=== PATIENT | female | born 1980 | race Caucasian/White ===

== ENCOUNTER 2017-07-25 21:24 | Outpatient (CLI) | payer MEDICAID ==
--- NOTE | 2017-07-16 21:46 | CONS ---
DATE OF ADMISSION: 08/10/2017 DATE OF CONSULTATION: HISTORY OF PRESENT ILLNESS: I thank you very much for this kind referral. The patient is a 71-year-old female patient, who has been referred to me for further evaluation of positive occult blood in stool. No past history of colon neoplasm. Patient never had a screening colonoscopy. Her appetite has been good and no weight loss. No upper abdominal pain, nausea, or vomiting. Not on nonsteroidal anti-inflammatory agents. No history of gallstones or liver disease. Hypertensive. She has diabetes. No heart disease, lung problem, or kidney disease. Has hyperlipidemia. Status post hysterectomy. SOCIAL HISTORY: Nonsmoker. No alcohol abuse. FAMILY HISTORY: No family history of gastrointestinal tract neoplasm. ALLERGIES: NO DRUG ALLERGIES. MEDICATIONS: She takes medicine for high blood pressure, diabetes and cholesterol, she does not remember the names. PHYSICAL EXAMINATION: VITAL SIGNS: She is 5 feet, 3 inches tall and weighs 196 pounds. BMI 35. Blood pressure 142/88, normal heart sounds. LUNGS: Clear. ABDOMEN: Soft. No masses. Normal bowel sounds. NEUROLOGIC: Normal neurological examination. IMPRESSION: 1. Positive occult blood in stool. 2. Patient never had a screening colonoscopy. 3. Hypertension. 4. Diabetes mellitus. 5. Hyperlipidemia. 6. Status post hysterectomy. 7. Obesity. PLAN: Colonoscopy for further evaluation. Because of the obesity with a short, thick neck, she needs monitored anesthesia care. The procedure and possible complications were well explained to the patient. She understands and consents to the procedure. The patient was strongly advised to lose weight. Dietary consultation was recommended. Follow up with a primary MD for the management of elevated BMI and hypertension. I thank you once again. With warmest personal regards. Dictated By: MD TONI Saha/bryant/bjc /Document#: [id number]
[~2017-07-25] VITALS: Ht 157.5 cm; Wt 61.5 kg
[~2017-07-25 21:24] MED LIST: PREN1TAB12
[2017-07-25 22:05] VITALS: Ht 157.5 cm; Wt 61.5 kg
[2017-07-25 22:49] VITALS: BP 128/73; PULSE 95; RESP 18
[2017-07-25] MEDS ORDERED: FER325 PO (22:51)
--- NOTE | 2017-07-26 01:43 | PN ---
Triage Information Date/Time Reason for visit: Uterine contractions (approx q5 min since 10/8 AM) Weeks of Gestation 37+5 /Para 3/2 Diabetes: none Hypertention: none Additional information Reports normal FM, denies LOF or VB. Of note, RN saw fluid on chux and sent ROM plus Objective Vital Signs Date Time Temp Pulse Resp B/P Pulse Ox O2 Delivery O2 Flow Rate FiO2 07/25/17 22:49 97.9 95 18 128/73 Room Air Heart Rate: 130's Heart Rate Comments mod variability, +accels, no decels Contractions: < 5 Minutes Apart Exam 3/70/-2, unchanged on repeat exam after 2hrs and then at 4hrs Nitrazine negative Results/Medications Results 24 hrs Laboratory Tests Test 07/25/17 22:35 Membranes Rupture NEGATIVE Disposition: Discharge Assessment/Plan Early labor w/reactive NST and no e/o ROM S/p prolonged monitoring without cervical change on serial SVEs Pt appropriate for d/c home Encouraged pt to call OB clinic tomorrow and schedule appt for this week ( missed last week's appt so did not have a f/up appt scheduled) Labor, ROM and FKC precautions reviewed Questions answered to patient's satisfaction ROSA M NAVAS MD Jul 26, 2017 01:42
== END 2017-07-26 03:31 | disposition home or self-care (01) ==
LOC: OBT 21:24 → L-D 21:24 → OBT 07-26 03:31
PROVIDERS: ATTEND Obstetrics & Gynecology
DX: O62.9 Abnormality of forces of labor, unspecified (principal); Z3A.37 37 weeks gestation of pregnancy
CPT/HCPCS: 84112; Z7500; G0463

== ENCOUNTER 2017-08-07 21:25 | Inpatient (IN) | payer MEDICAID ==
[~2017-08-07] VITALS: Ht 154.9 cm; Wt 62.6 kg
[~2017-08-07 21:25] MED LIST changes: +FER325 PO
[2017-08-07 21:52] VITALS: Ht 154.9 cm; Wt 62.6 kg
[2017-08-07 21:53] VITALS: BP 120/75; PULSE 71; RESP 18
[2017-08-07] MEDS ORDERED: LACTATED RINGER'S 1,000 ML IV SCH (23:47)
[2017-08-08] VITALS (8 sets, daily range): BP systolic 112–137; BP diastolic 66–77; PULSE 68–77; RESP 18–19
[2017-08-08] MEDS ORDERED: LIDOCAINE 1% (MPF) 30 ML INJ INJ PRN
[2017-08-08] MEDS ORDERED: BUTORPHANOL 2 MG INJ IV PRN
[2017-08-08] MEDS ORDERED: MISOPROSTOL 200 MCG TAB PR PRN
[2017-08-08] MEDS ORDERED: AMPICILLIN 2 GM/NS (PMX) 100 ML IV ONE
[2017-08-08] MEDS ORDERED: METHYLERGONOVINE 0.2 MG INJ IM PRN
[2017-08-08] MEDS ORDERED: OXYTOCIN 30 UNITS/LR 500 ML IV PRN
[2017-08-08] MEDS ORDERED: IBUPROFEN 600 MG TAB PO PRN
[2017-08-08] MEDS ORDERED: CARBOPROST 250 MCG INJ IM PRN
[2017-08-08] MEDS ORDERED: ONDANSETRON 4 MG INJ ONE (01:06)
[2017-08-08] MEDS ORDERED: CITRIC ACID/NA CITRATE 30 ML CUP ONE (01:06)
[2017-08-08 01:10] LABS: BASOPHIL # 0.1 10^3/ul (0.0-0.1); BASOPHILS % 0.5 % (0.0-2.0); EOSINOPHILS # 0.1 10^3/ul (0.0-0.5); EOSINOPHILS % 0.9 % (0.0-7.0); HEMATOCRIT 37.5 % (37.0-47.0); HEMOGLOBIN 12.6 g/dl (12.0-16.0); LYMPHOCYTES # 2.5 10^3/ul (0.8-2.9); LYMPHOCYTES % 22.9 % (15.0-51.0); MEAN CORPUSCULAR HEMOGLOBIN 28.7 pg (29.0-33.0); MEAN CORPUSCULAR HGB CONC 33.6 g/dl (32.0-37.0); MEAN CORPUSCULAR VOLUME 85.4 fl (82.0-101.0); MEAN PLATELET VOLUME 11.3 fl (7.4-10.4); MONOCYTE # 0.8 10^3/ul (0.3-0.9); MONOCYTES % 7.7 % (0.0-11.0); NEUTROPHIL # 7.2 10^3/ul (1.6-7.5); NEUTROPHILS % 67.1 % (39.0-77.0); PLATELET COUNT 237 10^3/UL (140-415); RED BLOOD COUNT 4.39 10^6/ul (4.20-5.40); RED CELL DISTRIBUTION WIDTH 12.7 % (11.5-14.5); WHITE BLOOD COUNT 10.7 10^3/ul (4.8-10.8)
[2017-08-08 01:27] LABS: INR 0.9; PROTIME 12.1 Sec (12.2-14.2); PT RATIO 0.9
[2017-08-08 01:28] LABS: PARTIAL THROMBOPLASTIN TIME 25.8 Sec (25.0-35.0)
[2017-08-08] MEDS ORDERED: LACTATED RINGER'S 1,000 ML IV ONE (01:31)
[2017-08-08] MEDS ORDERED: FENTAnyl 2MCG/ML-ROPIV 0.2% 100 ML ONE (01:38)
[2017-08-08] MEDS ORDERED: morphine 2 MG INJ IV PRN (02:00)
[2017-08-08] MEDS ORDERED: NALOXONE (0.4 MG/ML) INJ IV PRN (02:00)
[2017-08-08] MEDS ORDERED: TRIMETHOBENZAMIDE 100 MG/ML VIAL IM PRN (02:00)
[2017-08-08] MEDS ORDERED: CITRIC ACID/NA CITRATE 30 ML CUP PO ONE (02:00)
[2017-08-08] MEDS ORDERED: DIPHENHYDRAMINE 50 MG INJ IV PRN (02:00)
[2017-08-08] MEDS ORDERED: ONDANSETRON 4 MG INJ IV PRN ×2 (02:00→16:30)
[2017-08-08] MEDS ORDERED: KETOROLAC 30 MG INJ IV PRN (02:00)
[2017-08-08] MEDS ORDERED: NALBUPHINE HCL (10 MG/1 ML) INJ IV PRN (02:00)
[2017-08-08] MEDS ORDERED: ONDANSETRON 4 MG INJ IV ONE (02:00)
[2017-08-08] MEDS ORDERED: FENTAnyl 2MCG/ML-ROPIV 0.2% 100 ML BAG EPI SCH (02:00)
[2017-08-08] MEDS ORDERED: LACTATED RINGER'S 1,000 ML IV PRN (04:00)
[2017-08-08] MEDS: AMPICILLIN 1 GM/NS (PMX) 50 ML IV SCH ×2 (04:09→08:21)
[2017-08-08] MEDS ORDERED: OXYTOCIN 30 UNITS/LR 500 ML IV SCH ×3 (09:30)
--- NOTE | 2017-08-08 12:46 | LDN ---
Date/Time of Note Date/Time of Note DATE: 08/08/17 TIME: 12:36 Delivery Summary Normal spontaneous vaginal delivery of a live baby boy from OA position , shoulders delivered without difficulty ,rest of the baby's body followed baby had cord around the neck 1 placenta spontaneous expulsion inspected complete, blood loss 200 cc patient ,sustained small first-degree perineal laceration repaired with 3-0 chromic catgut Weeks of Gestation 39 weeks 5 days Placenta Delivered: Spontaneously Meconium: none Episiotomy: No Laceration repair: First-degree perineal laceration repaired with 3-0 chromic catgut Anesthesia type: Epidural Estimated blood loss: 200 Sponge & Needle done & correct: Yes All needle counts correct: Yes Any foreign bodies felt in the: No Problems: Infant Delivery Information Sex Infant Sex: male Apgars 1 Minute: 8 5 Minute: 9 Suctioning Nose & mouth suctioned at taylor: Yes Umbilical Cord Umbilical cord with: 3 Vessels Cord presentations: nuchal cord Nuchal cord present X: 1 Cord Blood was obtained: Yes MEGGAN HDEZ MD Aug 08, 2017 12:46
--- NOTE | 2017-08-08 12:54 | HP ---
Date/Time of Note Date/Time of Note DATE: 08/08/17 TIME: 12:46 OB - History Hx of Present Free Text/Dictation 36 years old female EDC August 10, 2017 admitted to [facility] in labor pelvic examination on admission cervix 3-4 cm dilated 70% effaced vertex at -2 station contraction every 5-10 minutes Chief Complaint: Labor contraction : 24 Para: 3 Spontaneous : 2 Care: Good Care Ultrasounds: Normal mid trimester US Obstetrical Complications: None Medical Complications: None Past Family/Social History * Past Medical, Surgical, Family and Obstetric Histories reviewed from chart. Rubella: immune RPR/VDRL: Negative GBS Status: Negative HBsAG: Negative OB Admission Exam Vital Signs Vital Signs Vital Signs Date Time Temp Pulse Resp B/P Pulse Ox O2 Delivery O2 Flow Rate FiO2 08/07/17 21:53 98.2 71 18 120/75 Room Air Physical Exam HEENT: WNL Heart: Rhythm Normal Abdomen: WNL Extremities: Normal Reflexes: Normal Cervical Dilatation: 4cm Effacement: 75% Station: -2 Membranes: Intact Heart Rate: 130's Decelerations: No Decelerations Varibility: Moderate Intensity: Moderate Last 72 hours Lab Results CBC & BMP 08/08/17 00:44 OB Assessment/Plan Reason for admission: active labor, other Other plan: 36 years old female EDC August 10, 2070 admitted to the hospital at 39 weeks and 5 days in labor pelvic exam on admission cervix 4 cm dilated 75-80% effaced vertex at -1 -2 station heart category 1 patient transferred from triage unit to L&D anticipating normal vaginal delivery. MEGGAN DHEZ MD Aug 08, 2017 12:54
[2017-08-08 14:30] LABS: BASOPHILS % 0.2 % (0.0-2.0); EOSINOPHILS # 0.1 10^3/ul (0.0-0.5); EOSINOPHILS % 0.3 % (0.0-7.0); HEMATOCRIT 35.8 % (37.0-47.0); LYMPHOCYTES # 1.5 10^3/ul (0.8-2.9); LYMPHOCYTES % 9.1 % (15.0-51.0); MEAN CORPUSCULAR HEMOGLOBIN 28.8 pg (29.0-33.0); MEAN CORPUSCULAR HGB CONC 33.5 g/dl (32.0-37.0); MEAN CORPUSCULAR VOLUME 86.1 fl (82.0-101.0); MONOCYTE # 0.7 10^3/ul (0.3-0.9); MONOCYTES % 4.1 % (0.0-11.0); NEUTROPHIL # 14.5 10^3/ul (1.6-7.5); NEUTROPHILS % 85.7 % (39.0-77.0); PLATELET COUNT 197 10^3/UL (140-415); RED BLOOD COUNT 4.16 10^6/ul (4.20-5.40)
[2017-08-08 14:52] LABS: ALBUMIN 2.8 g/dl (3.3-4.9); ALBUMIN/GLOBULIN RATIO 0.93; BILIRUBIN,INDIRECT 0.9 mg/dl (0-1.1); BILIRUBIN,TOTAL 0.9 mg/dl (0.2-1.3); CALCIUM 8.7 mg/dl (8.4-10.2); CREATININE 0.68 mg/dl (0.44-1.00); TOTAL PROTEIN 5.8 g/dl (6.1-8.1); URIC ACID 6.7 mg/dl (3.1-7.9)
[2017-08-08 15:10] LABS: UR COLOR RED (YELLOW)
[2017-08-08 15:11] LABS: UR CLARITY CLOUDY (CLEAR); UR KETONES (Dip) 2+ mg/dL (NEGATIVE); UR TOTAL PROTEIN (Dip) 4+ mg/dl (NEGATIVE)
[2017-08-08 15:12] LABS: ADD UMIC YES; UR BILIRUBIN (Dip) NEGATIVE (NEGATIVE); UR BLOOD (Dip) 3+ mg/dL (NEGATIVE); UR LEUKOCYTE ESTERASE (Dip) 2+ Leu/ul (NEGATIVE); UR NITRITE (Dip) POSITIVE (NEGATIVE); UR UROBILINOGEN (Dip) >8.0 E.U./dL mg/dL (NEGATIVE)
[2017-08-08 15:24] LABS: INR 0.98; PARTIAL THROMBOPLASTIN TIME 26.9 Sec (25.0-35.0)
[2017-08-08] MEDS ORDERED: MAGNESIUM SULFATE 20 GM/500 ML 500 ML IV SCH (15:30)
[2017-08-08] MEDS ORDERED: ACETAMINOPHEN 325 MG TAB PO PRN (16:30)
[2017-08-08] MEDS ORDERED: DIBUCAINE 1% 30 GM OINT PR PRN (16:30)
[2017-08-08] MEDS ORDERED: OXYCODONE/ASPIRIN (4.88/325) TAB PO PRN ×2 (16:30)
[2017-08-08] MEDS ORDERED: WITCH HAZEL/GLYCERIN PAD PR PRN (16:30)
[2017-08-08] MEDS ORDERED: LANOLIN 7 GM TUBE TOP PRN (16:30)
[2017-08-08] MEDS ORDERED: HYDROCODONE/APAP (5/325) TAB PO PRN ×2 (16:30)
[2017-08-08] MEDS ORDERED: BENZOCAINE 20% 56 ML SPRAY TOP PRN (16:30)
[2017-08-08] MEDS: OXYTOCIN 30 UNITS/LR 500 ML IV SCH ×2 (17:05→22:25)
[2017-08-08] MEDS: IBUPROFEN 600 MG TAB PO SCH (17:56)
[2017-08-08] MEDS: SENNA/DOCUSATE NA (8.6MG/50MG) TAB PO SCH (21:32)
[2017-08-09] VITALS (9 sets, daily range): BP systolic 103–137; BP diastolic 60–83; PULSE 65–85; RESP 16–19
[2017-08-09] MEDS: IBUPROFEN 600 MG TAB PO SCH ×5 (00:15→23:36)
[2017-08-09] MEDS: SENNA/DOCUSATE NA (8.6MG/50MG) TAB PO SCH ×2 (09:19→20:28)
--- NOTE | 2017-08-09 10:04 | QN ---
Documentation Comment Post normal vaginal delivery day 1 Afebrile vital signs are stable Abdomen soft uterus firm Lochia normal Extremities normal Ambulation encouraged Laboratory Tests Test 08/08/17 13:46 08/08/17 13:50 08/08/17 18:18 08/09/17 00:36 Urine Color RED Urine Clarity CLOUDY Urine pH 6.5 Urine Specific [place] 1.015 Urine Ketones 2+mg/dL Urine Nitrite POSITIVEmg/dL Urine Bilirubin NEGATIVEmg/dL Urine Urobilinogen >8.0 E.U./dLmg/dL Urine Leukocyte Esterase 2+Sophie/ul Urine WBC Clumps FEW/HPF Urine Microscopic WBC >200/HPF Urine Hemoglobin 3+mg/dL Urine Glucose 0.5%mg/dL Urine Total Protein 4+mg/dl White Blood Count 17.010^3/ul Red Blood Count 4.1610^6/ul Hemoglobin 12.0g/dl Hematocrit 35.8% Mean Corpuscular Volume 86.1fl Mean Corpuscular Hemoglobin 28.8pg Mean Corpuscular Hemoglobin Concent 33.5g/dl Red Cell Distribution Width 13.0% Platelet Count 47345^3/UL Mean Platelet Volume 12.0fl Neutrophils % 85.7% Lymphocytes % 9.1% Monocytes % 4.1% Eosinophils % 0.3% Basophils % 0.2% Nucleated Red Blood Cells % 0.0/100WBC Neutrophils # 14.510^3/ul Lymphocytes # 1.510^3/ul Monocytes # 0.710^3/ul Eosinophils # 0.110^3/ul Basophils # 0.010^3/ul Nucleated Red Blood Cells # 0.010^3/ul Prothrombin Time 13.0Sec Prothrombin Time Ratio 1.0 INR International Normalized Ratio 0.98 Activated Partial Thromboplast Time 26.9Sec Sodium Level 137mmol/L Potassium Level 4.0mmol/L Chloride Level 105mmol/L Carbon Dioxide Level 24mmol/L Anion Gap 12 Blood Urea Nitrogen 14mg/dl Creatinine 0.68mg/dl Glucose Level 104mg/dl Uric Acid 6.7mg/dl Calcium Level 8.7mg/dl Total Bilirubin 0.9mg/dl Direct Bilirubin 0.00mg/dl Indirect Bilirubin 0.9mg/dl Aspartate Amino Transf (AST/SGOT) 34IU/L Alanine Aminotransferase (ALT/SGPT) 38IU/L Alkaline Phosphatase 142IU/L Total Protein 5.8g/dl Albumin 2.8g/dl Globulin 3.00g/dl Albumin/Globulin Ratio 0.93 Magnesium Level 2.8mg/dl 3.7mg/dl Current Medications Medications (Trade) Dose Ordered Sig/Shonda Route PRN Reason Start Time Stop Time Status Last Admin Dose Admin Lactated Ringer's 1,000 ml @ 125 mls/hr Q8H IV 08/07/17 23:47 08/08/17 16:19 DC 08/08/17 04:09 Ampicillin 100 ml @ 100 mls/hr ONCE ONCE IV 08/08/17 00:00 08/08/17 00:59 DC 08/08/17 00:32 Ampicillin (Ampicillin 1 Gm/ NS (Pmx)) 50 ml @ 100 mls/hr Q4H IV 08/08/17 04:00 08/08/17 16:19 DC 08/08/17 08:21 Butorphanol Tartrate (Stadol) 2 mg Q2H PRN IV PAIN 08/08/17 00:00 08/08/17 16:19 DC Lidocaine 30 ml 30 ml ONCE PRN INJ EPISIOTOMY/TEARING 08/08/17 00:00 08/08/17 16:19 DC Oxytocin/Lactated Ringer's 500 ml @ 125 mls/hr ONCE -MAY REPEAT X1 IV 08/08/17 00:00 08/08/17 16:19 DC 08/08/17 09:50 Oxytocin/Lactated Ringer's 500 ml @ 125 mls/hr ONCE IV 08/08/17 00:00 08/08/17 16:19 DC 08/08/17 12:43 Ibuprofen 600 mg 600 mg ONCE PRN PO Mild Pain (Pain Score 1-3) 08/08/17 00:00 08/08/17 16:19 DC 08/08/17 13:33 Lactated Ringer's 1,000 ml @ 2,000 mls/hr Q30M PRN IV PRE-EPIDURAL BOLUS 08/08/17 04:00 08/08/17 16:19 DC 08/08/17 00:32 Oxytocin/Lactated Ringer's 500 ml @ 0 mls/hr ONCE PRN IV For Hemorrhage Management 08/08/17 00:00 08/08/17 16:19 DC Methylergonovine Maleate (Methergine) 0.2 mg ONCE PRN IM VAGINAL BLEEDING 08/08/17 00:00 08/08/17 16:19 DC Carboprost Tromethamine (Hemabate) 250 mcg ONCE PRN IM VAGINAL BLEEDING 08/08/17 00:00 08/08/17 16:19 DC Misoprostol (Cytotec) 1,000 mcg ONCE PRN MA VAGINAL BLEEDING 08/08/17 00:00 08/08/17 16:19 DC Citric Acid/ Sodium Citrate (Bicitra) 30 ml STK-MED ONCE .ROUTE 08/08/17 01:06 08/08/17 01:07 DC Ondansetron HCl (Zofran Inj) 4 mg STK-MED ONCE .ROUTE 08/08/17 01:06 08/08/17 01:07 DC Naloxone HCl (Narcan) 0.1 mg Q2M PRN IV FOR RESP RATE 8 OR LESS 08/08/17 02:00 08/08/17 16:19 DC Ketorolac Tromethamine (Toradol) 30 mg Q6H PRN IV PAIN 08/08/17 02:00 08/08/17 16:19 DC Morphine Sulfate (morphine) 2 mg Q3H PRN IV PAIN LEVEL 1-5 08/08/17 02:00 08/08/17 16:19 DC Diphenhydramine HCl (Benadryl) 25 mg Q6H PRN IV ITCHING 08/08/17 02:00 08/08/17 16:19 DC Nalbuphine HCl (Nubain) 5 mg ONCE PRN IV ITCHING 08/08/17 02:00 08/08/17 16:19 DC Ondansetron HCl (Zofran Inj) 4 mg Q6H PRN IV NAUSEA AND/OR VOMITING 08/08/17 02:00 08/08/17 16:19 DC Trimethobenzamide HCl (Tigan) 200 mg Q6H PRN IM NAUSEA AND/OR VOMITING 08/08/17 02:00 08/08/17 16:19 DC Fentanyl/ Ropivacaine 100 ml 100 ml EPIDURAL INFUSION EPI 08/08/17 02:00 08/08/17 16:19 DC 08/08/17 09:34 Lactated Ringer's (Lr) 1,000 ml @ 1,000 mls/hr Q1H ONCE IV 08/08/17 01:31 08/08/17 02:30 DC Ondansetron HCl (Zofran Inj) 4 mg pre-procedure ONCE IV 08/08/17 02:00 08/08/17 02:04 DC 08/08/17 02:23 Citric Acid/ Sodium Citrate 30 ml 30 ml PRE-OP ONCE PO 08/08/17 02:00 08/08/17 02:04 DC 08/08/17 02:22 Fentanyl/ Ropivacaine 100 ml @ STK-MED ONCE .ROUTE 08/08/17 01:38 08/08/17 01:39 DC Oxytocin/Lactated Ringer's 500 ml @ 0 mls/hr Q0M IV 08/08/17 09:30 08/08/17 16:19 DC Magnesium Sulfate 500 ml @ 25 mls/hr Q20H IV 08/08/17 15:30 08/09/17 03:30 DC 08/08/17 15:37 Oxytocin/Lactated Ringer's 500 ml @ 125 mls/hr Q4H IV 08/08/17 16:15 08/09/17 00:14 DC 08/08/17 22:25 Ibuprofen (Motrin) 600 mg Q6 PO 08/08/17 18:00 08/09/17 05:40 Acetaminophen (Tylenol Tab) 650 mg Q4H PRN PO PAIN LEVEL 1-5 08/08/17 16:30 Acetaminophen/ Hydrocodone Bitart (Planada (5/325)) 1 tab Q4H PRN PO PAIN LEVEL 1-5 08/08/17 16:30 Acetaminophen/ Hydrocodone Bitart (Planada (5/325)) 2 tab Q4H PRN PO PAIN LEVEL 6-10 08/08/17 16:30 Oxycodone/Aspirin (Percodan) 1 tab Q3H PRN PO PAIN LEVEL 1-5 08/08/17 16:30 Oxycodone/Aspirin (Percodan) 2 tab Q3H PRN PO PAIN LEVEL 6-10 08/08/17 16:30 Ondansetron HCl (Zofran Inj) 4 mg Q6H PRN IV NAUSEA AND/OR VOMITING 08/08/17 16:30 Senna/Docusate Sodium (Senokot-S) 1 tab BID PO 08/08/17 21:00 08/09/17 09:19 Witch Annabella/ Glycerin (Tucks Pads) 1 pad BEDSIDE MEDICATION PRN MA HEMORRHOID/EPISIOTMY PAIN 08/08/17 16:30 08/08/17 17:03 Benzocaine (Dermoplast [employer]) 1 spray BEDSIDE MEDICATION PRN TOP HEMORRHOID/EPISIOTMY PAIN 08/08/17 16:30 08/08/17 17:03 Dibucaine (Nupercainal) 1 applic BEDSIDE MEDICATION PRN MA HEMORRHOID/EPISIOTMY PAIN 08/08/17 16:30 Lanolin (Lid-O-Cvbplt) 1 applic BEDSIDE MEDICATION PRN TOP BEDSIDE FOR CHRISTY TO NIPPLES 08/08/17 16:30 08/08/17 17:03 Measles/Mumps/ Rubella Vaccine Live (Mmr Ii Vaccine) 0.5 ml ONCE ONCE SC* 08/10/17 09:00 08/10/17 09:01 Influenza Virus Vaccine (Fluzone) 0.5 ml ONCE ONCE IM* 08/09/17 17:30 08/09/17 17:31 08/09/17 09:19 MEGGAN HDEZ MD Aug 09, 2017 10:04
[2017-08-09 10:58] LABS: BASOPHILS % 0.4 % (0.0-2.0); EOSINOPHILS # 0.1 10^3/ul (0.0-0.5); EOSINOPHILS % 0.7 % (0.0-7.0); HEMATOCRIT 32.3 % (37.0-47.0); LYMPHOCYTES # 1.8 10^3/ul (0.8-2.9); LYMPHOCYTES % 17.1 % (15.0-51.0); MEAN CORPUSCULAR HEMOGLOBIN 29.2 pg (29.0-33.0); MEAN CORPUSCULAR HGB CONC 34.1 g/dl (32.0-37.0); MEAN CORPUSCULAR VOLUME 85.7 fl (82.0-101.0); MEAN PLATELET VOLUME 11.4 fl (7.4-10.4); MONOCYTE # 0.5 10^3/ul (0.3-0.9); MONOCYTES % 4.7 % (0.0-11.0); NEUTROPHIL # 7.9 10^3/ul (1.6-7.5); NEUTROPHILS % 76.2 % (39.0-77.0); PLATELET COUNT 203 10^3/UL (140-415); RED BLOOD COUNT 3.77 10^6/ul (4.20-5.40); WHITE BLOOD COUNT 10.4 10^3/ul (4.8-10.8)
[2017-08-09] MEDS ORDERED: INFLUENZA VIRUS VACCINE 0.5 ML SYG IM* ONE (17:30)
[2017-08-10 04:15] VITALS: BP 104/66; PULSE 72; RESP 18
[2017-08-10] MEDS: IBUPROFEN 600 MG TAB PO SCH ×2 (05:43→12:58)
--- NOTE | 2017-08-10 08:06 | OPPN ---
Date/Time of Note Date/Time of Note DATE: 08/10/17 TIME: 08:05 Anesthesia Follow up Anesthesia Follow up Last documented vital signs Vital Signs Date Time Temp Pulse Resp B/P Pulse Ox O2 Delivery O2 Flow Rate FiO2 08/10/17 04:15 98.2 72 18 104/66 Room Air Respiratory function: WNL Cardiovascular function: WNL Comments 36 yo F POD 2 s/p with labor epidural for analgesia. Pt is doing well , VSS, A&Ox3, without any complaints, tolerating po, ambulating, baby , family at bedside. No erythema, TTP, exudate at site. site c/d/ i. No issues from anesthesia. BEN DOBSON MD Aug 10, 2017 08:06
[2017-08-10] MEDS ORDERED: MEASLES,MUMPS,RUBELLA VACCINE INJ SC* ONE (09:00)
[2017-08-10 09:10] VITALS: BP 113/74; PULSE 68; RESP 17
[2017-08-10] MEDS: SENNA/DOCUSATE NA (8.6MG/50MG) TAB PO SCH (09:12)
--- NOTE | 2017-08-10 12:23 | QN ---
Documentation Comment PPD#2 is stable afebrile No VB +BM +voids VS stable Gen NAD Abd soft NT ND Genitalia No blood at perinium -->discharge home MICAELA POMPA M.D. Aug 10, 2017 12:23
--- NOTE | 2017-08-10 12:24 | DS ---
Date/Time of Note Date/Time of Note DATE: 08/10/17 TIME: 12:23 Discharge Summary Admission/Discharge Info Admit Date/Time Aug 07, 2017 at 23:57 Discharge Date/Time 08/10/17 Discharge Diagnosis Patient Condition: Good Hospital Course uneventful Home Meds Reported Medications Ferrous Sulfate* (Ferrous Sulfate*) 325 Mg Tabec, 325 MG PO TID, TAB 07/25/17 Vit/Fe Fumarate/Fa ( 1-1 Tablet) 1 Tab Tablet 01/23/11 Primary Care Provider Care Physician MICAELA Irizarry M.D. Aug 10, 2017 12:24
== END 2017-08-10 17:00 | disposition home or self-care (01) | DRG 775 ==
LOC: L-D 21:25 → OBT 21:25 → L-D 23:57 → PP1 08-08 16:07
PROVIDERS: ADMIT Obstetrics & Gynecology; ATTEND Obstetrics & Gynecology
PROC: 10E0XZZ Delivery of Products of Conception, External Approach (ICD-10-PCS; principal; 2017-08-08)
PROC: 0HQ9XZZ Repair Perineum Skin, External Approach (ICD-10-PCS; 2017-08-08)
DX: O69.81X0 Labor and delivery complicated by cord around neck, without compression, not applicable or unspecified (principal); O70.0 First degree perineal laceration during delivery; Z37.0 Single live birth; Z3A.39 39 weeks gestation of pregnancy
CPT/HCPCS: 62319; 80053; 81001; 83735; 84112; 84560; 85025; 85610; 85730; 86592; 86900; 86901; 87340; 90686; G0463; J0290; J2405; J2590; J3010; J3475; J7120